=== PATIENT | male | born 1975 | race Two or more races ===

== ENCOUNTER 2025-02-27 10:17 | Emergency (ER) | payer MEDICAID, OTHER ==
[~2025-02-27] VITALS: Ht 177.8 cm; Wt 99.8 kg
[2025-02-27] MEDS ORDERED: LIDOCAINE 2% 20 ML MDV ONE (10:36)
[2025-02-27] MEDS ORDERED: TDAP [DIPH/PERTUSSIS/TET] 0.5 ML VIAL IM ONE (10:40)
[2025-02-27] MEDS ORDERED: HYDROCODONE/APAP 5/325MG TABLET ONE (10:40)
[2025-02-27] MEDS ORDERED: LIDOCAINE MPF 1%-EPI 1:200,000 30 ML VIAL IJ ONE (10:41)
[2025-02-27] MEDS: TDAP [DIPH/PERTUSSIS/TET] 0.5 ML VIAL IM ONE (10:53)
[2025-02-27] MEDS: HYDROCODONE/APAP 5/325MG TABLET PO ONE (10:54)
[2025-02-27] MEDS: LIDOCAINE HCL/PF 1% 30 ML VIAL TP ONE (10:54)
[2025-02-27] MEDS: LIDOCAINE 2% 20 ML MDV TP ONE (10:55)
[2025-02-27 12:12] VITALS: BP 128/70; TEMP 97.8; O2SAT 97
== END 2025-02-27 12:12 | disposition home or self-care (01) ==
LOC: ER 10:21
DX: S61.213A Laceration without foreign body of left middle finger without damage to nail, initial encounter (principal); W31.2XXA Contact with powered woodworking and forming machines, initial encounter; Y93.89 Activity, other specified; Y92.89 Other specified places as the place of occurrence of the external cause; Y99.8 Other external cause status
CPT/HCPCS: 12001; 73140; 90471; 90715; 99283; J3490